=== PATIENT | male | born 1980 | race Caucasian/White ===

== ENCOUNTER 2020-11-07 13:50 | Outpatient (CLI) | payer BC | END 2020-11-07 13:51 | disposition home or self-care (01) | LOC: BICMRI 13:50 | PROVIDERS: ATTEND Psychiatry & Neurology Neurology | DX: G35 Multiple sclerosis (principal); M48.02 Spinal stenosis, cervical region; M47.812 Spondylosis without myelopathy or radiculopathy, cervical region; R90.89 Other abnormal findings on diagnostic imaging of central nervous system | CPT/HCPCS: 70553; 72156 ==